=== PATIENT | female | born 1960 | race African-American/Black ===

== ENCOUNTER 2020-01-22 09:51 | Outpatient (CLI) | payer MEDICARE ==
[2020-01-22 10:27] LABS: Estimated GFR-MDRD - POC Greater than 90
--- NOTE | 2020-01-22 14:07 | MRI ---
MRI OF THE RIGHT KNEE WITH AND WITHOUT CONTRAST: INDICATION: History of palpable mass within the posterior right knee. COMPARISON: Right knee radiograph dated July 05, 2014. TECHNIQUE: Multiplanar multisequence MR images were obtained of the right knee with and without IV co ntrast utilizing 20 mL of MultiHance. FINDINGS: A surface marker was placed in the region of palpable interest overlying the posterior midline distal femur. Underlying this region is a large Taylor's cyst containing multiple intra-articular bodies. One of the largest measures 3.4 x 2.7 cm on image 20 of series 8 and image 20 of series 4. No abnorma lly enhancing mass is seen in the region of palpable interest. No enlarged lymph nodes are present. There is a partial-thickness articular fissure involving the median patellar ridge measuring 1 mm on image 19 of series 3. No large joint capsular distention is noted. The MCL, ACL, PCL and lateral collateral ligament complex are intact. The extensor mechanism is intac t. There is a horizontally oriented oblique tear involving the body and posterior horn of the medial men iscus with partial medial extrusion. There is apparent meniscal cyst arising from the lateral aspect of the posterior junction of the medial meniscus extending along the posterior margin of the m edial tibial plateau measuring 2.0 x 2.3 cm in its greatest mediolateral and craniocaudad dimensions respectively. There are 2 small intra-articular bodies seen within the posterior aspect of the knee joint adjacent to the PCL measuring 8 mm a piece. There is a horizontally oriented tear involving the anterior body and anterior horn of the lateral me niscus. There is diffuse thinning involving the medial and lateral femoral tibial joint compartments. There a re small marginal osteophytes affecting all major compartments of the right knee. No abnormal region of enhancement is demonstrated. IMPRESSION: 1. Mild osteoarthrosis of the right knee with multiple intra-articular bodies seen within the posteri or knee joint as well as within a large Taylor's cyst. This likely corresponds to the palpable region of interest of the posterior right knee. 2. Medial and lateral meniscal tears. There is a prominent parameniscal cyst involving the posterior junction and posterior horn of the right knee. Transcribed Date/Time: 01/22/2020 2:35 PM
== END 2020-01-22 09:52 | disposition home or self-care (01) ==
LOC: SCSMRI 09:51
PROVIDERS: ATTEND Orthopaedic Surgery
DX: M25.561 Pain in right knee (principal); R22.41 Localized swelling, mass and lump, right lower limb; S83.241A Other tear of medial meniscus, current injury, right knee, initial encounter; S83.281A Other tear of lateral meniscus, current injury, right knee, initial encounter; M71.21 Synovial cyst of popliteal space [Baker], right knee; M17.11 Unilateral primary osteoarthritis, right knee
CPT/HCPCS: 82565

== ENCOUNTER 2021-11-27 13:22 | Outpatient (CLI) | payer MEDICARE ==
[2021-11-28 11:37] LABS: SARS-CoV-2 PCR by NAA Not Detected (NotDetected)
== END 2021-11-27 13:23 | disposition home or self-care (01) ==
LOC: LABBT 13:22
PROVIDERS: ATTEND Internal Medicine
DX: Z01.812 Encounter for preprocedural laboratory examination (principal); Z20.822 Contact with and (suspected) exposure to COVID-19; R13.10 Dysphagia, unspecified; R10.31 Right lower quadrant pain; Z12.11 Encounter for screening for malignant neoplasm of colon
CPT/HCPCS: U0003; U0005

== ENCOUNTER 2021-12-02 06:17 | Day surgery (SDC) | payer MEDICARE ==
[2021-11-26 08:59] VITALS: BMI 47.0
[2021-12-02] MEDS ORDERED: PROPOFOL 200 MG/20 ML VIAL ONE (08:12)
[2021-12-02] MEDS ORDERED: Lidocaine 1% PF 5 ML VIAL ONE (08:12)
[2021-12-02] MEDS ORDERED: Labetalol HCl 100 MG/20 ML VIAL ONE (08:12)
== END 2021-12-02 10:25 | disposition home or self-care (01) ==
LOC: SDC 06:17
PROVIDERS: ATTEND Internal Medicine
PROC: 0DB78ZX Excision of Stomach, Pylorus, Via Natural or Artificial Opening Endoscopic, Diagnostic (ICD-10-PCS; principal; 2021-12-02)
PROC: 0DBH8ZX Excision of Cecum, Via Natural or Artificial Opening Endoscopic, Diagnostic (ICD-10-PCS; 2021-12-02)
DX: K63.5 Polyp of colon (principal); K31.7 Polyp of stomach and duodenum; B96.81 Helicobacter pylori [H. pylori] as the cause of diseases classified elsewhere; K21.00 Gastro-esophageal reflux disease with esophagitis, without bleeding; K31.89 Other diseases of stomach and duodenum; K55.20 Angiodysplasia of colon without hemorrhage; K64.4 Residual hemorrhoidal skin tags; K64.8 Other hemorrhoids; R13.10 Dysphagia, unspecified; I10 Essential (primary) hypertension; E78.00 Pure hypercholesterolemia, unspecified; E11.9 Type 2 diabetes mellitus without complications; I45.10 Unspecified right bundle-branch block; I49.1 Atrial premature depolarization; J45.909 Unspecified asthma, uncomplicated; D57.3 Sickle-cell trait; K59.00 Constipation, unspecified; E66.01 Morbid (severe) obesity due to excess calories; Z68.42 Body mass index [BMI] 45.0-49.9, adult; Z86.711 Personal history of pulmonary embolism; Z86.73 Personal history of transient ischemic attack (TIA), and cerebral infarction without residual deficits; Z79.4 Long term (current) use of insulin; Z79.84 Long term (current) use of oral hypoglycemic drugs; Z79.899 Other long term (current) drug therapy; Z88.2 Allergy status to sulfonamides; Z88.5 Allergy status to narcotic agent; Z88.6 Allergy status to analgesic agent; Z88.7 Allergy status to serum and vaccine; Z88.8 Allergy status to other drugs, medicaments and biological substances; Z91.030 Bee allergy status
CPT/HCPCS: 36416; 88305; J2704

== ENCOUNTER 2024-02-02 13:27 | Outpatient (CLI) | payer MEDICARE | END 2024-02-02 13:28 | disposition home or self-care (01) | LOC: RAD 13:27 | PROVIDERS: ATTEND Internal Medicine | DX: R06.00 Dyspnea, unspecified (principal) | CPT/HCPCS: 71046 ==